=== PATIENT | female | born 1995 | race Two or more races ===

== ENCOUNTER 2017-12-19 20:32 | Emergency (ER) | payer SELFPAY ==
[~2017-12-19] VITALS: Ht 160 cm; Wt 72.6 kg
[2017-12-19 21:10] VITALS: BP 116/68
== END 2017-12-20 04:24 | disposition home or self-care (01) ==
LOC: ER 20:32
DX: S16.1XXA Strain of muscle, fascia and tendon at neck level, initial encounter (principal); S20.211A Contusion of right front wall of thorax, initial encounter; S09.90XA Unspecified injury of head, initial encounter; V43.62XA Car passenger injured in collision with other type car in traffic accident, initial encounter; Y93.89 Activity, other specified; Y99.8 Other external cause status; Y92.410 Unspecified street and highway as the place of occurrence of the external cause
CPT/HCPCS: 70450; 71045; 72125; 73560; 73590